=== PATIENT | female | born 1945 | race Caucasian/White ===

== ENCOUNTER 2016-10-17 13:32 | Observation (INO) | payer MEDICARE, BC ==
[2016-10-17] MEDS ORDERED: SODIUM CHLORIDE FLUSH 0.9% 10 ML SYRINGE IVP PRN ×3 (16:55→19:52)
[2016-10-17] MEDS ORDERED: ACETAMINOPHEN 325 MG TABLET PO ONE ×2 (19:00→19:56)
[2016-10-17] MEDS ORDERED: diphenhydrAMINE 25 MG CAPSULE PO ONE ×2 (19:00→19:58)
[2016-10-17] MEDS ORDERED: diphenhydrAMINE 25 MG CAPSULE PO SCH (19:52)
[2016-10-17] MEDS ORDERED: ACETAMINOPHEN 325 MG TABLET PO SCH (19:52)
[2016-10-17] MEDS ORDERED: LORazepam 0.5 MG TABLET PO PRN (19:59)
[2016-10-17] MEDS ORDERED: ACETAMINOPHEN 325 MG TABLET PO PRN (19:59)
[2016-10-17] MEDS ORDERED: DOCUSATE SODIUM 100 MG CAPSULE PO PRN (19:59)
[2016-10-17] MEDS ORDERED: ALBUTEROL 8 GM INHALER INH PRN (19:59)
[2016-10-17] MEDS ORDERED: IPRATROPIUM/ALBUTEROL 3 ML NEB INH PRN (19:59)
[2016-10-17] MEDS ORDERED: diphenhydrAMINE 25 MG CAPSULE PO PRN (19:59)
[2016-10-17] MEDS ORDERED: ONDANSETRON ODT 4 MG TABLET PO PRN (19:59)
[2016-10-17] MEDS ORDERED: MIRTAZAPINE 15 MG TABLET PO SCH (21:00)
[2016-10-17] MEDS ORDERED: PRAVASTATIN 10 MG TABLET PO SCH (21:00)
[2016-10-17] MEDS ORDERED: SODIUM CHLORIDE FLUSH 0.9% 10 ML SYRINGE IVP SCH ×2 (22:00)
[2016-10-17] MEDS: oxyCODONE 5 MG TABLET PO PRN (22:34)
[2016-10-17] MEDS: SODIUM CHLORIDE FLUSH 0.9% 10 ML SYRINGE IVP SCH (23:12)
[2016-10-17] MEDS: GABAPENTIN 300 MG CAPSULE PO SCH (23:12)
[2016-10-17] MEDS: PANTOPRAZOLE 40 MG TABLET PO SCH (23:12)
[2016-10-18] MEDS: oxyCODONE 5 MG TABLET PO PRN ×2 (02:19→06:07)
[2016-10-18] MEDS: GABAPENTIN 300 MG CAPSULE PO SCH (06:06)
[2016-10-18] MEDS: SODIUM CHLORIDE FLUSH 0.9% 10 ML SYRINGE IVP SCH (06:07)
[2016-10-18] MEDS ORDERED: LEVOTHYROXINE 125 MCG TABLET PO SCH (07:00)
[2016-10-18] MEDS ORDERED: ALBUTEROL NEB 2.5 MG/3 ML INH PRN ×2 (07:29→07:38)
[2016-10-18] MEDS ORDERED: SEVELAMER 800 MG TABLET PO SCH (08:00)
[2016-10-18] MEDS ORDERED: FERROUS SULFATE 325 MG TABLET PO SCH (08:00)
[2016-10-18] MEDS: PANTOPRAZOLE 40 MG TABLET PO SCH (08:24)
[2016-10-18] MEDS ORDERED: LIDOCAINE PATCH 5% TOP SCH (09:00)
[2016-10-18] MEDS ORDERED: CARVEDILOL 3.125 MG TABLET PO SCH (09:00)
[2016-10-18] MEDS ORDERED: CHOLECALCIFEROL 1,000 UNIT TABLET PO SCH (09:00)
[2016-10-18] MEDS ORDERED: FOLIC ACID 1 MG TABLET PO SCH (09:00)
[2016-10-18] MEDS ORDERED: POLYETHYLENE GLYCOL 3350 17 GM PACKET PO SCH ×3 (09:00)
[2016-10-18] MEDS ORDERED: ASPIRIN EC 81 MG TABLET PO SCH (09:00)
== END 2016-10-18 10:40 | disposition home or self-care (01) ==
DX: D63.1 Anemia in chronic kidney disease (principal); E11.22 Type 2 diabetes mellitus with diabetic chronic kidney disease; I13.11 Hypertensive heart and chronic kidney disease without heart failure, with stage 5 chronic kidney disease, or end stage renal disease; N18.6 End stage renal disease; Z99.2 Dependence on renal dialysis; Q61.3 Polycystic kidney, unspecified; I48.91 Unspecified atrial fibrillation; E03.9 Hypothyroidism, unspecified; N25.81 Secondary hyperparathyroidism of renal origin; F32.9 Major depressive disorder, single episode, unspecified; M81.0 Age-related osteoporosis without current pathological fracture; C50.912 Malignant neoplasm of unspecified site of left female breast; Z17.0 Estrogen receptor positive status [ER+]; G89.29 Other chronic pain; M54.9 Dorsalgia, unspecified; M25.512 Pain in left shoulder; M25.511 Pain in right shoulder; M54.2 Cervicalgia; K21.9 Gastro-esophageal reflux disease without esophagitis; K44.9 Diaphragmatic hernia without obstruction or gangrene; Z96.649 Presence of unspecified artificial hip joint; Z96.659 Presence of unspecified artificial knee joint; Z79.891 Long term (current) use of opiate analgesic; Z79.51 Long term (current) use of inhaled steroids; Z79.82 Long term (current) use of aspirin; Z79.899 Other long term (current) drug therapy
CPT/HCPCS: 36415; 36430; 80053; 83690; 83735; 84100; 85025; 86850; 86900; 86901; 86920; 94640; 99283; 99285; A9270; G0378; J7620; P9016

== ENCOUNTER 2016-12-11 12:59 | Outpatient (CLI) | payer MEDICARE, BC | END 2016-12-11 13:00 | disposition home or self-care (01) | DX: Z08 Encounter for follow-up examination after completed treatment for malignant neoplasm (principal); Z85.3 Personal history of malignant neoplasm of breast ==

== ENCOUNTER 2016-12-12 16:18 | Outpatient (CLI) | payer MEDICARE, BC ==
[2016-12-12] MEDS ORDERED: IOTHALAMATE MEGLUMINE 50 ML VIAL IVP ONE (17:21)
== END 2016-12-12 16:19 | disposition home or self-care (01) ==
DX: Z45.2 Encounter for adjustment and management of vascular access device (principal)
CPT/HCPCS: 76000; Q9961

== ENCOUNTER 2017-02-14 15:44 | Outpatient (CLI) | payer MEDICARE, BC | END 2017-02-14 15:45 | disposition home or self-care (01) | DX: J84.9 Interstitial pulmonary disease, unspecified (principal); I51.7 Cardiomegaly ==

== ENCOUNTER 2017-02-16 17:05 | Emergency (ER) | payer MEDICARE, BC ==
[2017-02-16] MEDS ORDERED: IPRATROPIUM/ALBUTEROL 3 ML NEB INH STA (17:22)
[2017-02-16] MEDS ORDERED: IPRATROPIUM/ALBUTEROL 3 ML NEB INH ONE (17:24)
[2017-02-16] MEDS ORDERED: ALBUTEROL NEB 2.5 MG/3 ML INH STA ×2 (18:05→18:58)
[2017-02-16] MEDS ORDERED: ALBUTEROL NEB 2.5 MG/3 ML INH ONE ×2 (18:14→19:26)
[2017-02-16] MEDS ORDERED: methylPREDNISolone SUCCINATE 125 MG/2 ML VIAL IVP STA (18:58)
[2017-02-16] MEDS ORDERED: methylPREDNISolone SUCCINATE 125 MG/2 ML VIAL IVP ONE (19:17)
== END 2017-02-16 21:04 | disposition short-term general hospital (02) ==
DX: J44.1 Chronic obstructive pulmonary disease with (acute) exacerbation (principal); Z99.81 Dependence on supplemental oxygen; I13.2 Hypertensive heart and chronic kidney disease with heart failure and with stage 5 chronic kidney disease, or end stage renal disease; N18.6 End stage renal disease; I50.9 Heart failure, unspecified; D63.1 Anemia in chronic kidney disease; Z99.2 Dependence on renal dialysis; I48.91 Unspecified atrial fibrillation; G47.30 Sleep apnea, unspecified; K21.9 Gastro-esophageal reflux disease without esophagitis; M19.90 Unspecified osteoarthritis, unspecified site; Z85.3 Personal history of malignant neoplasm of breast; Z85.828 Personal history of other malignant neoplasm of skin; Z79.82 Long term (current) use of aspirin
CPT/HCPCS: 36415; 71020; 80053; 83605; 83690; 84484; 85025; 87040; 93005; 93010; 94640; 96365; 96375; 99284; 99285; J7613; J7620

== ENCOUNTER 2017-02-16 21:00 | Outpatient (CLI) | payer MEDICARE, BC | END 2017-02-16 21:01 | disposition short-term general hospital (02) | LOC: EMS 21:00 | PROVIDERS: ATTEND Surgery | DX: R06.02 Shortness of breath (principal); R05 Cough | CPT/HCPCS: A0170; A0425; A0426 ==

== ENCOUNTER 2017-03-07 23:35 | Emergency (ER) | payer MEDICARE, BC ==
--- NOTE | 2017-03-07 23:49 | ED Physician Documentation ---
PD HPI UPPER EXT INJURY - Stated complaint Stated Complaint: RT ARM INJURY - Chief complaint Chief Complaint: Ext Problem - History obtained from History obtained from: Patient - History of Present Illness Location: Right, Wrist, Hand Type of injury: Fall Where injury occurred: Home Timing - onset: Enter time (20:00) Timing - details: Abrupt onset Pain level now: 8 Improved by: Rest Worsened by: Moving, Palpating Associated symptoms: Swelling. No: Weakness, Numbness Similar symptoms before: Has not had sx before Recently seen: Not recently seen - Additonal information Additional information: lost balance and fell at home at 8 PM tonight, c/o right wrist and right hand pain, worse with movement and palpation Review of Systems Musculoskeletal: reports: Extremity pain, Joint pain, Extremity swelling, Joint swelling. 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: Breast cancer : Dialysis HEENT: None Psych: Depression, Claustrophobia Musculoskeletal: Osteoarthritis, Osteoporosis, Fatigue, Chronic back pain Derm: Other - Past Surgical History Past Surgical History: Yes General: Cholecystectomy, Bowel surgery, Other Ortho: Knee replacement /POT BUILDER: 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 HEENT: Cataracts, Tonsil/Adenoidectomy, Other Derm: Skin cancer surgery - Present Medications Home Medications: Ambulatory Orders Medication Instructions Recorded Confirmed Aspirin [Aspir 81] 81 mg PO DAILY 04/05/14 12/13/16 Gabapentin 300 mg PO TID 04/05/14 12/13/16 Levothyroxine Sodium [Synthroid] 125 mcg PO DAILY 04/05/14 12/13/16 Lorazepam [Ativan] 1 mg PO Q8H PRN 04/05/14 12/13/16 Omeprazole 20 mg PO BID 04/05/14 12/13/16 Folic Acid 800 mcg PO DAILY 06/24/14 12/13/16 Mecobal/Levomefolat Ca/B6 Phos 1 tab PO BID 06/24/14 12/13/16 [Foltanx Tablet] Sevelamer Carbonate [Renvela] 1,600 mg PO TIDWM 06/24/14 12/13/16 Albuterol Sulfate [Proair 2 puffs INH Q6HR PRN 08/09/16 12/13/16 Respiclick] Carvedilol 3.125 mg PO DAILY 08/09/16 12/13/16 Cholecalciferol (Vitamin D3) 2,000 units PO DAILY 08/09/16 12/13/16 [Vitamin D3] Diphenhydramine HCl [Sleep Aid] 25 mg PO QPM PRN 08/09/16 12/13/16 Docusate Sodium 100 mg PO DAILY PRN 08/09/16 12/13/16 Mirtazapine 15 mg PO QPM 08/09/16 12/13/16 Ondansetron [Ondansetron Odt] 4 mg PO Q8H PRN 08/09/16 12/13/16 oxyCODONE [Roxicodone] 5 mg PO Q4H PRN 08/09/16 12/13/16 Acetaminophen 650 mg PO Q4H PRN 10/17/16 12/13/16 Ferrous Sulfate 325 mg PO TIDWM 10/17/16 12/13/16 Ipratropium/Albuterol [Duoneb] 3 ml INH Q6H PRN 10/17/16 12/13/16 Lidocaine Patch 5% [Lidoderm Patch] 1 patch TOP DAILY 10/17/16 12/13/16 Pravastatin [Pravachol] 10 mg PO QPM 10/17/16 12/13/16 Polyethylene Glycol 3350 [Miralax] 17 gm PO DAILY packet 10/18/16 12/13/16 Prednisone 0 mg PO DAILY 02/16/17 02/16/17 levoFLOXacin [Levaquin] 0 mg PO DAILY 02/16/17 02/16/17 - Allergies Allergies/Adverse Reactions: Allergies Allergy/AdvReac Type Severity Reaction Status Date / Time atenolol Allergy Severe "Bradycardi Verified 11/08/16 08:54 a" doxazosin mesylate * Allergy Severe "Severe Verified 11/08/16 08:54 [From Cardura] eye pressure" ibuprofen [From Motrin] Allergy Severe "Kidney Verified 11/08/16 08:54 failure" metoprolol tartrate * Allergy Severe "Bradycardi Verified 11/08/16 08:54 [From Lopressor] a" nifedipine [From Procardia] Allergy Severe Edema Verified 11/08/16 08:54 heparin AdvReac Intermediate "Makes Verified 11/08/16 08:54 Skin Burn" hydrochlorothiazide AdvReac Intermediate "feels Verified 11/08/16 08:54 like an air-head" hydrocodone bitartrate * AdvReac Intermediate "Head in a Verified 11/08/16 08:54 [From Vicodin] wind tunnel" spironolactone AdvReac Intermediate "Cough" Verified 11/08/16 08:54 - Social History Does the pt smoke?: No Smoking Status: Never smoker Does the pt drink ETOH?: No Does the pt have substance abuse?: No - Immunizations Immunizations are current?: Yes - POLST Patient has POLST: No PD ED PE NORMAL - Vitals Vital signs reviewed: Yes - General General: Alert and oriented X 3, Well developed/nourished, Other (appears to be in painful distress) - Derm Derm: Normal color, Warm and dry - Neuro Neuro: No motor deficit, No sensory deficit PD ED PE EXPANDED - Extremities Extremities: Tenderness, Limited ROM, Swelling, Right wrist, Right hand, Other ( RUE AV fistula has thrill/bruit and no evidence of injury) Results - Vitals Vitals: Vital Signs - 24 hr 03/07/17 03/08/17 03/08/17 23:41 01:08 02:20 Temperature 36.6 C Heart Rate 65 72 74 Respiratory 20 18 18 Rate Blood Pressure 140/63 H 135/68 H 138/68 H O2 Saturation 91 L 90 L 94 03/08/17 02:52 Temperature Heart Rate 68 Respiratory 18 Rate Blood Pressure O2 Saturation 93 Oxygen O2 Source Room air - Rads (name of study) right hand xrays Radiology: Prelim report reviewed, See rad report right wrist xrays Radiology: Prelim report reviewed, See rad report PD MEDICAL DECISION MAKING - ED course Complexity details: reviewed results, re-evaluated patient, considered differential, d/w patient, d/w family Departure - Departure Disposition: 01 Home, Self Care Clinical Impression: Wrist sprain Condition: Good Instructions: ED Sprain Wrist Follow-Up: Jorge Jones DO [Primary Care Provider] - Malcom Villarreal MD [Provider Admit Priv/Credential] - Comments: There is no evidence of a fracture or dislocation on tonight's xrays. However, the amount of pain you are having is unusual for a simple sprain or bruise. You should follow-up with your primary care physician or orthopedic surgery, next available appointment, for a reevaluation of the injury and possibly repeat xrays. Discharge Date/Time: 03/08/17 02:52
[2017-03-08] MEDS ORDERED: HYDROmorphone 1 MG/ML SYRINGE ONE ×3 (00:03→02:36)
[2017-03-08] MEDS: HYDROmorphone 1 MG/ML SYRINGE IM STA ×3 (00:06→02:39)
--- NOTE | 2017-03-08 01:21 | XRAY Preliminary Report ---
Exam: XR Wrist 3 View RT IMPRESSION: 1. Old radial metaphyseal fracture deformity. 2. No evidence of acute fracture. 3. Degenerative changes. [facility] SITE ID: [id number]
--- NOTE | 2017-03-08 01:23 | XRAY Preliminary Report ---
Exam: XR Hand 3 View RT IMPRESSION: No acute fracture or dislocations. Osteoarthritis. [facility] SITE ID: [id number]
--- NOTE | 2017-03-08 01:23 | XRAY Report ---
EXAM: RIGHT WRIST RADIOGRAPHY EXAM DATE: 03/08/2017 12:54 AM. CLINICAL HISTORY: Fall, pain, deformity. COMPARISON: 07/05/2016. TECHNIQUE: 3 views. FINDINGS: Bones: There is an old radial metaphyseal fracture deformity. No acute fracture seen. Generalized ost eopenia. Joints: Advanced degenerative changes at the first carpometacarpal joint. No dislocations. Soft Tissues: Calcified radial and ulnar arteries indicating diabetic vasculopathy. IMPRESSION: 1. Old radial metaphyseal fracture deformity. 2. No evidence of acute fracture. 3. Degenerative changes. [facility] Referring Provider Line: [phone] SITE ID: [id number]
--- NOTE | 2017-03-08 01:26 | XRAY Report ---
EXAM: RIGHT HAND RADIOGRAPHY EXAM DATE: 03/08/2017 12:54 AM. CLINICAL HISTORY: Fall, pain, deformity. COMPARISON: None. TECHNIQUE: 3 views. FINDINGS: Bones: Osteopenia. No acute fractures. Joints: Advanced osteoarthritic changes involving the PIP, DIP and first carpometacarpal joints. Soft Tissues: Normal. No soft tissue swelling. IMPRESSION: No acute fracture or dislocations. Osteoarthritis. [facility] Referring Provider Line: [phone] SITE ID: [id number]
[2017-03-08 02:20] VITALS: BP 138/68
== END 2017-03-08 02:52 | disposition home or self-care (01) ==
LOC: ED 23:35
DX: S63.501A Unspecified sprain of right wrist, initial encounter (principal); W01.0XXA Fall on same level from slipping, tripping and stumbling without subsequent striking against object, initial encounter; Y92.019 Unspecified place in single-family (private) house as the place of occurrence of the external cause; I11.0 Hypertensive heart disease with heart failure; I50.9 Heart failure, unspecified; I48.91 Unspecified atrial fibrillation; G47.30 Sleep apnea, unspecified; K21.9 Gastro-esophageal reflux disease without esophagitis; Z85.3 Personal history of malignant neoplasm of breast; M19.90 Unspecified osteoarthritis, unspecified site; Z79.82 Long term (current) use of aspirin; Z99.2 Dependence on renal dialysis
CPT/HCPCS: 96372; 99282; 99284

== ENCOUNTER 2017-03-19 12:58 | Day surgery (SDC) | payer MEDICARE, BC ==
[2017-03-19] MEDS ORDERED: LACTATED RINGERS 1,000 ML IV ONE (13:15)
[2017-03-19] MEDS ORDERED: SODIUM CHLORIDE 0.9% 1,000 ML IV ONE (13:58)
[2017-03-19] MEDS ORDERED: LIDOCAINE-MPF 2% 5 ML VIAL IM ONE (15:00)
[2017-03-19] MEDS ORDERED: MIDAZOLAM 2 MG/2 ML VIAL IVP ONE (15:00)
[2017-03-19] MEDS ORDERED: PROPOFOL 200 MG/20 ML VIAL IVP ONE (15:00)
[2017-03-19 15:43] VITALS: BP 135/72
== END 2017-03-19 12:59 | disposition home or self-care (01) ==
LOC: SDS 12:58
PROVIDERS: ATTEND Internal Medicine
PROC: 0DBN8ZX Excision of Sigmoid Colon, Via Natural or Artificial Opening Endoscopic, Diagnostic (ICD-10-PCS; principal; 2017-03-19 14:00)
PROC: 0DBL8ZX Excision of Transverse Colon, Via Natural or Artificial Opening Endoscopic, Diagnostic (ICD-10-PCS; 2017-03-19 14:00)
DX: K92.1 Melena (principal); D64.9 Anemia, unspecified; K21.9 Gastro-esophageal reflux disease without esophagitis; D12.5 Benign neoplasm of sigmoid colon; D12.3 Benign neoplasm of transverse colon; K44.9 Diaphragmatic hernia without obstruction or gangrene; K64.2 Third degree hemorrhoids; Z90.710 Acquired absence of both cervix and uterus; Z94.0 Kidney transplant status; Z90.49 Acquired absence of other specified parts of digestive tract; I11.0 Hypertensive heart disease with heart failure; I50.9 Heart failure, unspecified; I48.91 Unspecified atrial fibrillation
CPT/HCPCS: 45380; 88305

== ENCOUNTER 2017-09-08 06:56 | Outpatient (CLI) | payer MEDICARE, BC | END 2017-09-08 06:57 | disposition critical access hospital (66) | LOC: EMS 06:56 | PROVIDERS: ATTEND Surgery | DX: M25.561 Pain in right knee (principal); W18.2XXA Fall in (into) shower or empty bathtub, initial encounter; Y92.002 Bathroom of unspecified non-institutional (private) residence as the place of occurrence of the external cause | CPT/HCPCS: A0425; A0429 ==

== ENCOUNTER 2017-09-08 07:31 | Emergency (ER) | payer MEDICARE, BC ==
--- NOTE | 2017-09-08 07:45 | ED Physician Documentation ---
PD HPI Fall - Stated complaint Stated Complaint: FALL - Chief complaint Chief Complaint: Ext Problem - History obtained from History obtained from: Patient, EMS - History of Present Illness Mechanism of injury: Tripped Fall distance: Standing position Where injury occurred: Home Timing - onset: Today Injury(ies) location: Head, Neck, Right Lower Extremity Quality of pain: Pain Associated symptoms: Neck pain. No: LOC, AMS, Amnesia, Seizures, Ear drainage, Nasal drainage, Weakness, Paresthesias, Dyspnea, Nausea / vomiting, Hematemesis , Abdominal distension Symptoms improve with: Rest Worsens with: Movement, Palpation Contributing factors: No: Anticoagulated Similar symptoms before: Has not had sx before Recently seen: Other - Additional information Additional information: 71-year-old female with end-stage renal disease on dialysis was getting into the shower this morning when she tripped over a towel and landed in the shower. She did strike the back of her head or neck she did not have loss of consciousness she did have an injury to the right knee. She is uncertain the exact mechanism of this but has a lot of pain and swelling in the knee. She called the ambulance and brought to the hospital. Review of Systems Constitutional: denies: Fever, Chills, Myalgias, Fatigue Eyes: denies: Decreased vision Ears: denies: Ear pain Nose: reports: Congestion. denies: Rhinorrhea / runny nose Throat: denies: Sore throat Cardiac: denies: Chest pain / pressure, Palpitations Respiratory: denies: Dyspnea, Cough GI: denies: Abdominal Pain, Nausea, Vomiting : denies: Dysuria, Frequency Skin: denies: Rash Musculoskeletal: reports: Neck pain, Extremity pain, Joint pain, Joint swelling. 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, Other HEENT: Chronic vision loss Psych: Anxiety Musculoskeletal: Osteoarthritis, Chronic back pain Derm: Other - Past Surgical History Past Surgical History: Yes General: Cholecystectomy, Bowel surgery Ortho: Knee replacement /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 HEENT: Cataracts, Tonsil/Adenoidectomy Derm: Skin cancer surgery - Present Medications Home Medications: Ambulatory Orders Medication Instructions Recorded Confirmed Aspirin [Aspir 81] 81 mg PO DAILY 04/05/14 07/15/17 Gabapentin 300 mg PO TID 04/05/14 07/15/17 Levothyroxine Sodium [Synthroid] 125 mcg PO DAILY 04/05/14 07/15/17 Lorazepam [Ativan] 1 mg PO Q8H PRN 04/05/14 07/15/17 Omeprazole 20 mg PO BID 04/05/14 07/15/17 Folic Acid 800 mcg PO DAILY 06/24/14 07/15/17 Mecobal/Levomefolat Ca/B6 Phos 1 tab PO BID 06/24/14 07/15/17 [Foltanx Tablet] Sevelamer Carbonate [Renvela] 1,600 mg PO TIDWM 06/24/14 07/15/17 Albuterol Sulfate [Proair 2 puffs INH Q6HR PRN 08/09/16 07/15/17 Respiclick] Cholecalciferol (Vitamin D3) 2,000 units PO DAILY 08/09/16 07/15/17 [Vitamin D3] Diphenhydramine HCl [Sleep Aid] 25 mg PO QPM PRN 08/09/16 07/15/17 Docusate Sodium 100 mg PO DAILY PRN 08/09/16 07/15/17 Mirtazapine 15 mg PO QPM 08/09/16 07/15/17 Ondansetron [Ondansetron Odt] 4 mg PO Q8H PRN 08/09/16 07/15/17 oxyCODONE [Roxicodone] 5 mg PO Q4H PRN 08/09/16 07/15/17 Acetaminophen 650 mg PO Q4H PRN 10/17/16 07/15/17 Ferrous Sulfate 325 mg PO TIDWM 10/17/16 07/15/17 Ipratropium/Albuterol [Duoneb] 3 ml INH Q6H PRN 10/17/16 07/15/17 Lidocaine Patch 5% [Lidoderm Patch] 1 patch TOP DAILY 10/17/16 07/15/17 Pravastatin [Pravachol] 10 mg PO QPM 10/17/16 07/15/17 Polyethylene Glycol 3350 [Miralax] 17 gm PO DAILY packet 10/18/16 07/15/17 - Allergies Allergies/Adverse Reactions: Allergies Allergy/AdvReac Type Severity Reaction Status Date / Time atenolol Allergy Severe "Bradycardi Verified 04/24/17 15:50 a" doxazosin mesylate * Allergy Severe "Severe Verified 04/24/17 15:50 [From Cardura] eye pressure" ibuprofen [From Motrin] Allergy Severe "Kidney Verified 04/24/17 15:50 failure" metoprolol tartrate * Allergy Severe "Bradycardi Verified 04/24/17 15:50 [From Lopressor] a" nifedipine [From Procardia] Allergy Severe Edema Verified 04/24/17 15:50 heparin AdvReac Intermediate "Makes Verified 04/24/17 15:50 Skin Burn" hydrochlorothiazide AdvReac Intermediate "feels Verified 04/24/17 15:50 like an air-head" hydrocodone bitartrate * AdvReac Intermediate "Head in a Verified 04/24/17 15:50 [From Vicodin] wind tunnel" spironolactone AdvReac Intermediate "Cough" Verified 04/24/17 15:50 - Social History Does the pt smoke?: No Smoking Status: Never smoker Does the pt drink ETOH?: No Does the pt have substance abuse?: No - Immunizations Immunizations are current?: Yes - POLST Patient has POLST: No PD ED PE NORMAL - Vitals Vital signs reviewed: Yes (hypertensive) - General General: Alert and oriented X 3, No acute distress, Well developed/nourished, Other (large proptotic tongue and dry mucous membranes) - HEENT HEENT: PERRL, EOMI, Other (There is a short neck and some midline tenderness to the cervical spine. There is tenderness to the occiput on the left. ) - Neck Neck: Supple, no meningeal sign, Other (midline mid cervical tenderness) - Cardiac Cardiac: RRR, No murmur - Respiratory Respiratory: No respiratory distress, Clear bilaterally - Abdomen Abdomen: Soft, Non tender - Back Back: No CVA TTP, No spinal TTP - Derm Derm: Normal color, Warm and dry, No rash - Extremities Extremities: Other (There is post inflamitory hyperpigmentation of the LE bilat. There is an effusion to the right knee joint and pain with ROM testing. The medial collateral ligment opens on testing. distal n/v is intact. ) - Neuro Neuro: Alert and oriented X 3, No motor deficit, No sensory deficit, Normal speech Eye Opening: Spontaneous Motor: Obeys Commands Verbal: Oriented GCS Score: 15 - Psych Psych: Normal mood, Normal affect Results - Vitals Vitals: Vital Signs - 24 hr 09/08/17 09/08/17 09/08/17 07:34 08:20 08:46 Temperature 36.4 C L 36.8 C Heart Rate 65 66 Respiratory 18 18 Rate Blood Pressure 139/81 H 129/74 O2 Saturation 100 98 09/08/17 09/08/17 09/08/17 09:47 10:16 11:09 Temperature Heart Rate 70 64 70 Respiratory 18 20 20 Rate Blood Pressure 114/73 105/52 L 100/77 O2 Saturation 99 96 99 09/08/17 13:53 Temperature 37.3 C Heart Rate 92 Respiratory 20 Rate Blood Pressure 108/56 L O2 Saturation 97 Oxygen O2 Source Nasal cannula PD MEDICAL DECISION MAKING - ED course Complexity details: considered differential, d/w patient ED course: 71-year-old female with end-stage renal disease on dialysis has fallen in her shower today and has a tibial plateau fracture in the right knee. She will need immobilization and nonweightbearing. She does have some help at home but not adequate. She will need more help at home. The your orthopedist is consulted in the case and recommends conservative therapy for this patient and follow-up in clinic. Social work is consulted in the case. The patient herself has some issues with narcotic use and will repeatedly asked for further doses of narcotic pain medication. She has in the past been given a dose of 2 mg of Dilaudid intravenously for pain not relieved with 1 mg and this resulted in respiratory arrest and the diagnostic imaging department. The patient was resuscitated from that and her narcotic use has been curtailed. She is currently under pain management by Dr. Jones and Dr. Jones he is consulted in the case and he will be managing her pain medication. Departure - Departure Disposition: 01 Home, Self Care Clinical Impression: Tibial plateau fracture, left Qualifiers: Encounter type: initial encounter Fracture type: closed Qualified Code(s): S82.142A - Displaced bicondylar fracture of left tibia, initial encounter for closed fracture Condition: Stable Instructions: ED Fx Knee Follow-Up: [facility] [Provider Group] Jorge Jones, [Provider Admit Priv/Credential] - Comments: Wear the knee immobilizer continuously and when you are up to ambulate do not bear weight on your right leg. Discharge Date/Time: 09/08/17 14:00
--- NOTE | 2017-09-08 08:14 | CT Preliminary Report ---
Exam: CT HEAD W/O IMPRESSION: 1. Generalized age-related cortical atrophic changes without evidence of acute intracranial abnormali ty. 2. Paranasal sinusitis is evident. [facility] SITE ID: [id number]
--- NOTE | 2017-09-08 08:17 | CT Report ---
EXAM: CT HEAD EXAM DATE: 09/08/2017 08:01 AM. CLINICAL HISTORY: Fall occipital contusion. COMPARISON: 04/05/2014. TECHNIQUE: Multiaxial CT images were obtained from the foramen magnum to the vertex. IV contrast: Non e. Reformats: Coronal. In accordance with CT protocol optimization, one or more of the following dose reduction techniques w ere utilized for this exam: automated exposure control, adjustment of mA and/or KV based on patient s ize, or use of iterative reconstructive technique. FINDINGS: Parenchyma: No intraparenchymal hemorrhage. No evidence of mass, midline shift, or CT findings of acu te infarction. Solis-white differentiation is distinct. Diffuse chronic microangiopathic white matter changes are evident. Extraaxial Spaces: Normal for age. No subdural or epidural collections identified. Ventricles: The ventricles and cortical sulci are enlarged, consistent with age-related tissue loss. Sinuses and orbits: Mucosal thickening seen in the bilateral maxillary sinuses. Mastoid air cells almaz ear clear. Orbits appear unremarkable. Bones: No evidence of fracture or calvarial defect. Other: None. IMPRESSION: 1. Generalized age-related cortical atrophic changes without evidence of acute intracranial abnormali ty. 2. Paranasal sinusitis is evident. [facility] Referring Provider Line: [phone] SITE ID: [id number]
--- NOTE | 2017-09-08 08:22 | XRAY Preliminary Report ---
Exam: XR KNEE 4 VIEW RT IMPRESSION: 1. Minimally displaced medial tibial plateau fracture. 2. Substantial, diffuse osteopenia. 3. Moderate-sized joint effusion/lipohemarthrosis. 4. Old, healed proximal fibular fracture. [facility] SITE ID: [id number]
--- NOTE | 2017-09-08 08:25 | XRAY Report ---
EXAM: RIGHT KNEE RADIOGRAPHY EXAM DATE: 09/08/2017 07:50 AM. CLINICAL HISTORY: Fall effusion reduced ROM. Right knee pain after fall. COMPARISON: 06/16/2016. TECHNIQUE: 4 views. FINDINGS: Bones: Substantial, diffuse osteopenia. New, minimally displaced fracture of the medial tibial platea u, extending to near the midline of the tibia. No other definite acute fractures. Old, healed proxima l fibular fracture redemonstrated. Joints: No subluxation. Joint spaces are preserved. Minimal medial and lateral meniscal chondrocalcin osis demonstrated. Moderate sized joint effusion, probably representing a lipohemarthrosis. Soft Tissues: Extensive vascular calcifications redemonstrated. No soft tissue swelling. IMPRESSION: 1. Minimally displaced medial tibial plateau fracture. 2. Substantial, diffuse osteopenia. 3. Moderate-sized joint effusion/lipohemarthrosis. 4. Old, healed proximal fibular fracture. [facility] Referring Provider Line: [phone] SITE ID: [id number]
[2017-09-08] MEDS ORDERED: HYDROmorphone 1 MG/ML SYRINGE IVP STA ×2 (08:48→10:05)
[2017-09-08] MEDS ORDERED: ONDANSETRON 4 MG/2 ML VIAL IVP STA (08:48)
--- NOTE | 2017-09-08 08:50 | CT Preliminary Report ---
Exam: CT CERVICAL SPINE W/O IMPRESSION: Multilevel degenerative change cervical spine with anterior listhesis C4 on C5 and C5 on C6 with multilevel degenerative facet joint arthropathy similar to 04/05/2014. No definite superimpos ed acute findings [facility] SITE ID: [id number]
--- NOTE | 2017-09-08 08:53 | CT Report ---
EXAM: CT CERVICAL SPINE WITHOUT CONTRAST DATE: 09/08/2017 08:01 AM. HISTORY: Fall occipital contusion. Neck pain COMPARISONS: 04/05/2014. TECHNIQUE: Thin-section axial images were acquired of the cervical spine without contrast. Post-proce ssing: Coronal and sagittal reformats. Other: None. In accordance with CT protocol optimization, one or more of the following dose reduction techniques w ere utilized for this exam: automated exposure control, adjustment of mA and/or KV based on patient s ize, or use of iterative reconstructive technique. FINDINGS: Alignment: Approximately 3 mm of anterior listhesis C4 on C5 and 4 mm of anterior listhesis of C5 on C6 similar to preceding. Bones: No fracture or bone lesion. Interspace Levels/Facets: C1-C2 through C7-T1: Advanced degenerative disk space narrowing C5-C6 and C6-C7 with progressive dege nerative erosion of the inferior endplate of C6 since the prior study. Remaining disk spaces grossly well maintained. Multilevel degenerative facet joint arthropathy with mild progressive widening of th e left C2-C3 facet compared to the prior study. Previously seen asymmetric widening of the left C3-C4 facet joint has decreased. Musculature: Normal. No fatty atrophy. Other: Vascular graft right neck and Port-A-Cath left subclavian. Tracheotomy. IMPRESSION: Multilevel degenerative change cervical spine with anterior listhesis C4 on C5 and C5 on C6 with multilevel degenerative facet joint arthropathy similar to 04/05/2014. No definite superimpos ed acute findings [facility] Referring Provider Line: [phone] SITE ID: [id number]
[2017-09-08] MEDS ORDERED: HYDROmorphone 1 MG/ML SYRINGE ONE ×2 (09:09→10:17)
[2017-09-08] MEDS ORDERED: ONDANSETRON 4 MG/2 ML VIAL ONE (09:09)
--- NOTE | 2017-09-08 09:21 | CONSULTATION NOTE ---
Referring Provider Name of Referring Provider:: alberto cardona Consult Date: 09/08/17 Chief Complaint - Chief Complaint Chief Complaint: right knee pain History of Present Illness - Admitted From Admitted From:: home - History Obtained From History obtained from: patient Exam Limitations: pain - History of Present Illness HPI Comment/Other: 73 y.o female with CRF on dialysis post failed transplant who slipped on rug at edge of bath falling with primarily right knee pain. Prior left TKA. No prior injury to right inee. At home patient uses walker and WC. 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: reports: Breast cancer : reports: Dialysis, Other HEENT: reports: Chronic vision loss Psych: reports: Anxiety Musculoskeletal: reports: Osteoarthritis, Chronic back pain Derm: reports: Other MRSA Hx?: No - Past Surgical History General: reports: Cholecystectomy, Bowel surgery Ortho: reports: Knee replacement /ANTHROPOLOGY PROFESSOR: reports: 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 HEENT: reports: Cataracts, Tonsil/Adenoidectomy Derm: reports: Skin cancer surgery - POLST Patient has POLST: No Meds/Allgy - Home Medications Home Medications: Ambulatory Orders Medication Instructions Recorded Confirmed Aspirin [Aspir 81] 81 mg PO DAILY 04/05/14 07/15/17 Gabapentin 300 mg PO TID 04/05/14 07/15/17 Levothyroxine Sodium [Synthroid] 125 mcg PO DAILY 04/05/14 07/15/17 Lorazepam [Ativan] 1 mg PO Q8H PRN 04/05/14 07/15/17 Omeprazole 20 mg PO BID 04/05/14 07/15/17 Folic Acid 800 mcg PO DAILY 06/24/14 07/15/17 Mecobal/Levomefolat Ca/B6 Phos 1 tab PO BID 06/24/14 07/15/17 [Foltanx Tablet] Sevelamer Carbonate [Renvela] 1,600 mg PO TIDWM 06/24/14 07/15/17 Albuterol Sulfate [Proair 2 puffs INH Q6HR PRN 08/09/16 07/15/17 Respiclick] Cholecalciferol (Vitamin D3) 2,000 units PO DAILY 08/09/16 07/15/17 [Vitamin D3] Diphenhydramine HCl [Sleep Aid] 25 mg PO QPM PRN 08/09/16 07/15/17 Docusate Sodium 100 mg PO DAILY PRN 08/09/16 07/15/17 Mirtazapine 15 mg PO QPM 08/09/16 07/15/17 Ondansetron [Ondansetron Odt] 4 mg PO Q8H PRN 08/09/16 07/15/17 oxyCODONE [Roxicodone] 5 mg PO Q4H PRN 08/09/16 07/15/17 Acetaminophen 650 mg PO Q4H PRN 10/17/16 07/15/17 Ferrous Sulfate 325 mg PO TIDWM 10/17/16 07/15/17 Ipratropium/Albuterol [Duoneb] 3 ml INH Q6H PRN 10/17/16 07/15/17 Lidocaine Patch 5% [Lidoderm Patch] 1 patch TOP DAILY 10/17/16 07/15/17 Pravastatin [Pravachol] 10 mg PO QPM 10/17/16 07/15/17 Polyethylene Glycol 3350 [Miralax] 17 gm PO DAILY packet 10/18/16 07/15/17 - Allergies Allergies/Adverse Reactions: Allergies Allergy/AdvReac Type Severity Reaction Status Date / Time atenolol Allergy Severe "Bradycardi Verified 04/24/17 15:50 a" doxazosin mesylate * Allergy Severe "Severe Verified 04/24/17 15:50 [From Cardura] eye pressure" ibuprofen [From Motrin] Allergy Severe "Kidney Verified 04/24/17 15:50 failure" metoprolol tartrate * Allergy Severe "Bradycardi Verified 04/24/17 15:50 [From Lopressor] a" nifedipine [From Procardia] Allergy Severe Edema Verified 04/24/17 15:50 heparin AdvReac Intermediate "Makes Verified 04/24/17 15:50 Skin Burn" hydrochlorothiazide AdvReac Intermediate "feels Verified 04/24/17 15:50 like an air-head" hydrocodone bitartrate * AdvReac Intermediate "Head in a Verified 04/24/17 15:50 [From Vicodin] wind tunnel" spironolactone AdvReac Intermediate "Cough" Verified 04/24/17 15:50 Exam - Vital Signs Reviewed Vital Signs: Yes Vital Signs: Vital Signs x48h Temp Pulse Resp BP Pulse Ox 09/08/17 08:46 36.8 C 66 18 129/74 98 09/08/17 08:20 36.4 C L 09/08/17 07:34 65 18 139/81 H 100 - Physical Exam Comments/Other: Elderly cachectic female with dystonicmotions of mouth, but able to talk clearly. No sign of trauma to upper extremities. Moves neck with mild pain. Right lower extremity with mild swelling and possibly no effusion. Tender at medial tibial plateau and painful there with very limited motion near extension. No varus deformity. No wound. Normally decreased distal NV function. Conclusion/Plan - Diagnosis Diagnosis: Closed Right tibial plateau fracture,medial,. Pain management issues. Mobility issues, must be non-weight bearing in knee immobilizer. Need for dialysis tomorrow - Plan Plan: Disposition as per ER MD. Will need to see me in 2-3 weeks in office. Weight of leg weight bearing only during that interval. Labs, EKG, Meds, Allergy - Medications Medications: Ambulatory Orders Medication Instructions Recorded Confirmed Aspirin [Aspir 81] 81 mg PO DAILY 04/05/14 07/15/17 Gabapentin 300 mg PO TID 04/05/14 07/15/17 Levothyroxine Sodium [Synthroid] 125 mcg PO DAILY 04/05/14 07/15/17 Lorazepam [Ativan] 1 mg PO Q8H PRN 04/05/14 07/15/17 Omeprazole 20 mg PO BID 04/05/14 07/15/17 Folic Acid 800 mcg PO DAILY 06/24/14 07/15/17 Mecobal/Levomefolat Ca/B6 Phos 1 tab PO BID 06/24/14 07/15/17 [Foltanx Tablet] Sevelamer Carbonate [Renvela] 1,600 mg PO TIDWM 06/24/14 07/15/17 Albuterol Sulfate [Proair 2 puffs INH Q6HR PRN 08/09/16 07/15/17 Respiclick] Cholecalciferol (Vitamin D3) 2,000 units PO DAILY 08/09/16 07/15/17 [Vitamin D3] Diphenhydramine HCl [Sleep Aid] 25 mg PO QPM PRN 08/09/16 07/15/17 Docusate Sodium 100 mg PO DAILY PRN 08/09/16 07/15/17 Mirtazapine 15 mg PO QPM 08/09/16 07/15/17 Ondansetron [Ondansetron Odt] 4 mg PO Q8H PRN 08/09/16 07/15/17 oxyCODONE [Roxicodone] 5 mg PO Q4H PRN 08/09/16 07/15/17 Acetaminophen 650 mg PO Q4H PRN 10/17/16 07/15/17 Ferrous Sulfate 325 mg PO TIDWM 10/17/16 07/15/17 Ipratropium/Albuterol [Duoneb] 3 ml INH Q6H PRN 10/17/16 07/15/17 Lidocaine Patch 5% [Lidoderm Patch] 1 patch TOP DAILY 10/17/16 07/15/17 Pravastatin [Pravachol] 10 mg PO QPM 10/17/16 07/15/17 Polyethylene Glycol 3350 [Miralax] 17 gm PO DAILY packet 10/18/16 07/15/17 - Allergy Allergy: Allergies Allergy/AdvReac Type Severity Reaction Status Date / Time atenolol Allergy Severe "Bradycardi Verified 04/24/17 15:50 a" doxazosin mesylate * Allergy Severe "Severe Verified 04/24/17 15:50 [From Cardura] eye pressure" ibuprofen [From Motrin] Allergy Severe "Kidney Verified 04/24/17 15:50 failure" metoprolol tartrate * Allergy Severe "Bradycardi Verified 04/24/17 15:50 [From Lopressor] a" nifedipine [From Procardia] Allergy Severe Edema Verified 04/24/17 15:50 heparin AdvReac Intermediate "Makes Verified 04/24/17 15:50 Skin Burn" hydrochlorothiazide AdvReac Intermediate "feels Verified 04/24/17 15:50 like an air-head" hydrocodone bitartrate * AdvReac Intermediate "Head in a Verified 04/24/17 15:50 [From Vicodin] wind tunnel" spironolactone AdvReac Intermediate "Cough" Verified 04/24/17 15:50 Aspirin [Aspir 81] 81 mg PO DAILY 04/05/14 Gabapentin 300 mg PO TID 04/05/14 Levothyroxine Sodium [Synthroid] 125 mcg PO DAILY 04/05/14 Lorazepam [Ativan] 1 mg PO Q8H PRN 04/05/14 Omeprazole 20 mg PO BID 04/05/14 Folic Acid 800 mcg PO DAILY 06/24/14 Mecobal/Levomefolat Ca/B6 Phos [Foltanx Tablet] 1 tab PO BID 06/24/14 Sevelamer Carbonate [Renvela] 1,600 mg PO TIDWM 06/24/14 Albuterol Sulfate [Proair Respiclick] 2 puffs INH Q6HR PRN 08/09/16 Cholecalciferol (Vitamin D3) [Vitamin D3] 2,000 units PO DAILY 08/09/16 Diphenhydramine HCl [Sleep Aid] 25 mg PO QPM PRN 08/09/16 Docusate Sodium 100 mg PO DAILY PRN 08/09/16 Mirtazapine 15 mg PO QPM 08/09/16 Ondansetron [Ondansetron Odt] 4 mg PO Q8H PRN 08/09/16 oxyCODONE [Roxicodone] 5 mg PO Q4H PRN 08/09/16 Acetaminophen 650 mg PO Q4H PRN 10/17/16 Ferrous Sulfate 325 mg PO TIDWM 10/17/16 Ipratropium/Albuterol [Duoneb] 3 ml INH Q6H PRN 10/17/16 Lidocaine Patch 5% [Lidoderm Patch] 1 patch TOP DAILY 10/17/16 Pravastatin [Pravachol] 10 mg PO QPM 10/17/16 Polyethylene Glycol 3350 [Miralax] 17 gm PO DAILY packet 10/18/16 - Other Other Results/Comments: Radiographs: Right knee with severly osteo porotic bones equal to density of atherosclerotic arteries. Medialtibial plateau wedge shaped impaction with perhaps 5-10 deg change in the joint. However femoral- tibial slight varus remains. Non intra-articular in medial compartment. Very congruent surfaces without prior arthritic change.
[2017-09-08] MEDS ORDERED: oxyCOD/ACETAMIN 5 MG/325 MG TABLET PO STA (11:53)
[2017-09-08] MEDS ORDERED: oxyCOD/ACETAMIN 5 MG/325 MG TABLET PO ONE (12:05)
[2017-09-08 13:54] VITALS: BP 108/56
== END 2017-09-08 14:00 | disposition home or self-care (01) ==
LOC: EDUNIT# → ED 07:31
DX: S82.141A Displaced bicondylar fracture of right tibia, initial encounter for closed fracture (principal); W18.2XXA Fall in (into) shower or empty bathtub, initial encounter; Y93.E1 Activity, personal bathing and showering; Y92.012 Bathroom of single-family (private) house as the place of occurrence of the external cause; I12.0 Hypertensive chronic kidney disease with stage 5 chronic kidney disease or end stage renal disease; N18.6 End stage renal disease; Z99.2 Dependence on renal dialysis; G47.30 Sleep apnea, unspecified; I50.22 Chronic systolic (congestive) heart failure; I08.2 Rheumatic disorders of both aortic and tricuspid valves; I25.10 Atherosclerotic heart disease of native coronary artery without angina pectoris; I48.2 Chronic atrial fibrillation; K21.9 Gastro-esophageal reflux disease without esophagitis; M19.90 Unspecified osteoarthritis, unspecified site; E78.00 Pure hypercholesterolemia, unspecified; J44.9 Chronic obstructive pulmonary disease, unspecified; E03.9 Hypothyroidism, unspecified; Z85.3 Personal history of malignant neoplasm of breast; Z85.828 Personal history of other malignant neoplasm of skin; Z79.82 Long term (current) use of aspirin; Z94.0 Kidney transplant status; Z99.3 Dependence on wheelchair
CPT/HCPCS: 29530; 70450; 72125; 73564; 93306; 96374; 96375; 96376; 99284; A9270; J1170

== ENCOUNTER 2017-09-08 15:33 | Outpatient (CLI) | payer MEDICARE, BC | END 2017-09-08 15:34 | disposition home or self-care (01) | LOC: DI 15:33 | PROVIDERS: ATTEND Internal Medicine Cardiovascular Disease | DX: I50.22 Chronic systolic (congestive) heart failure (principal); I08.2 Rheumatic disorders of both aortic and tricuspid valves; I25.10 Atherosclerotic heart disease of native coronary artery without angina pectoris; I48.2 Chronic atrial fibrillation | CPT/HCPCS: 93306 ==

== ENCOUNTER 2017-10-01 13:07 | Outpatient (CLI) | payer MEDICARE, BC ==
--- NOTE | 2017-10-01 16:13 | Mammography Report ---
EXAM: DIGITAL DIAGNOSTIC BILATERAL MAMMOGRAM: 10/01/2017 CLINICAL INDICATION: Followup left breast cancer, status post lumpectomy and radiation therapy. TECHNIQUE: Bilateral CC, MLO views, left true lateral view. COMPARISON: 12/11/2016, 04/29/2016, 09/18/2015, 01/25/2015, 06/28/2014, 2013, 03/10/2014, 11/21/2008. FINDINGS: The breasts demonstrate heterogeneously dense fibroglandular parenchyma bilaterally. There is diffuse bilateral skin thickening and interstitial prominence, suggestive of cardiac disease or other etiology for diffuse edema. No suspicious masses, clustered microcalcifications, or regions of architectural distortion are identified. Coarse, typically benign calcifications are present. IMPRESSION: BENIGN FINDINGS. RECOMMENDATIONS: Routine annual mammography unless otherwise clinically indicated. BIRADS CATEGORY 2-BENIGN FINDINGS. STANDARD QUALIFYING STATEMENTS: 1. This examination was reviewed with the aid of Computer-Aided Detection (CAD) . 2. A negative or benign imaging report should not delay biopsy if clinically suspicious findings are present. Consider surgical consultation if warranted. More than 5% of cancers are not identified by imaging. 3. Dense breasts may obscure an underlying neoplasm. TD: 10/01/2017 16:12 LEIF
== END 2017-10-01 13:08 | disposition home or self-care (01) ==
LOC: DI 13:07
PROVIDERS: ATTEND Internal Medicine Hematology & Oncology
DX: C50.412 Malignant neoplasm of upper-outer quadrant of left female breast (principal); Z98.890 Other specified postprocedural states; Z92.3 Personal history of irradiation
CPT/HCPCS: 77066

== ENCOUNTER 2018-04-13 07:32 | Outpatient (CLI) | payer MEDICARE, BC ==
--- NOTE | 2018-04-13 09:04 | Ultrasound Report ---
Procedure Date: 04/13/2018 Accession Number: [id number] / [id number] Procedure: US - Abdomen Complete CPT Code: FULL RESULT: EXAM: Abdomen Complete DATE: 04/13/2018 8:55 AM CLINICAL HISTORY: ESRD ON HEMODIALYSIS, POLYCISTIC KIDNEY COMPARISON: 08/29/2006 TECHNIQUE: Real-time scanning was performed with static images obtained. FINDINGS: Liver: Polycystic liver, measuring 21 cm. Main portal vein flow: Hepatopetal. No solid liver lesion identified. Gallbladder: Surgically absent. Biliary System: Common bile duct measures 12 mm. Mildly prominent for a postcholecystectomy patient. Pancreas: Visualized portion is unremarkable. Kidneys: Right: 18 cm longitudinally. Polycystic kidney. No hydronephrosis. Left: 14 cm longitudinally. Polycystic kidney. No hydronephrosis. Spleen: 19 cm. Splenomegaly. No focal mass. Aorta and Inferior Vena Cava: Unremarkable. In the right lower quadrant, there is a 9.9 cm right iliac fossa renal transplant, without evidence of hydronephrosis. Ascites is present. IMPRESSION: Polycystic liver and kidneys. Right lower quadrant renal transplant, without evidence of hydronephrosis. Splenomegaly and ascites, likely secondary to liver dysfunction. RADIA
== END 2018-04-13 07:33 | disposition home or self-care (01) ==
LOC: DI 07:32
PROVIDERS: ATTEND Internal Medicine Nephrology
DX: N18.6 End stage renal disease (principal); Q61.3 Polycystic kidney, unspecified; Z99.2 Dependence on renal dialysis; Q44.6 Cystic disease of liver; R16.1 Splenomegaly, not elsewhere classified; R18.8 Other ascites; Z94.0 Kidney transplant status
CPT/HCPCS: 76700

== ENCOUNTER 2018-05-10 15:45 | Outpatient (CLI) | payer MEDICARE, BC | END 2018-05-10 15:46 | disposition critical access hospital (66) | LOC: EMS 15:45 | PROVIDERS: ATTEND Surgery | DX: R51 Headache (principal); M54.2 Cervicalgia; M25.552 Pain in left hip; M25.512 Pain in left shoulder; W18.39XA Other fall on same level, initial encounter; Y92.481 Parking lot as the place of occurrence of the external cause | CPT/HCPCS: A0425; A0429 ==

== ENCOUNTER 2018-05-10 16:01 | Emergency (ER) | payer MEDICARE, BC ==
[2018-05-10] MEDS ORDERED: MORPHINE 10 MG/ML VIAL IM STA ×2 (16:18→18:07)
--- NOTE | 2018-05-10 16:23 | ED Physician Documentation ---
History of Present Illness - Stated complaint Stated Complaint: GLF - Chief complaint Chief Complaint: General - History obtained from History obtained from: Patient, EMS - History of Present Illness Timing: Today (72yo woman with ESRD, Dialyzed Friday, , Friday. She had a mechanical fall backwards hitting the left scapula in the back of her head. No open wounds. She also complains of hip pain. At baseline she is either in a wheelchair or uses a walker. No shortness of breath or chest pain. 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, Other HEENT: Chronic vision loss Psych: Anxiety Musculoskeletal: Osteoarthritis, Chronic back pain Derm: Other - Past Surgical History Past Surgical History: Yes General: Cholecystectomy, Bowel surgery Ortho: Knee replacement /OUTSIDE PLANT SUPERVISOR: 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 HEENT: Cataracts, Tonsil/Adenoidectomy Derm: Skin cancer surgery - Present Medications Home Medications: Ambulatory Orders Medication Instructions Recorded Confirmed Aspirin [Aspir 81] 81 mg PO DAILY 04/05/14 12/29/17 Gabapentin 300 mg PO TID 04/05/14 12/29/17 Levothyroxine Sodium [Synthroid] 125 mcg PO DAILY 04/05/14 12/29/17 Lorazepam [Ativan] 1 mg PO Q8H PRN 04/05/14 12/29/17 Omeprazole 20 mg PO BID 04/05/14 12/29/17 Folic Acid 800 mcg PO DAILY 06/24/14 12/29/17 Mecobal/Levomefolat Ca/B6 Phos 1 tab PO BID 06/24/14 12/29/17 [Foltanx Tablet] Sevelamer Carbonate [Renvela] 1,600 mg PO TIDWM 06/24/14 12/29/17 Albuterol Sulfate [Proair 2 puffs INH Q6HR PRN 08/09/16 12/29/17 Respiclick] Cholecalciferol (Vitamin D3) 2,000 units PO DAILY 08/09/16 12/29/17 [Vitamin D3] Diphenhydramine HCl [Sleep Aid] 25 mg PO QPM PRN 08/09/16 12/29/17 Docusate Sodium 100 mg PO DAILY PRN 08/09/16 12/29/17 Mirtazapine 15 mg PO QPM 08/09/16 12/29/17 Ondansetron [Ondansetron Odt] 4 mg PO Q8H PRN 08/09/16 12/29/17 oxyCODONE [Roxicodone] 5 mg PO Q4H PRN 08/09/16 12/29/17 Acetaminophen 650 mg PO Q4H PRN 10/17/16 12/29/17 Ferrous Sulfate 325 mg PO TIDWM 10/17/16 12/29/17 Ipratropium/Albuterol [Duoneb] 3 ml INH Q6H PRN 10/17/16 12/29/17 Lidocaine Patch 5% [Lidoderm Patch] 1 patch TOP DAILY 10/17/16 12/29/17 Pravastatin [Pravachol] 10 mg PO QPM 10/17/16 12/29/17 Polyethylene Glycol 3350 [Miralax] 17 gm PO DAILY packet 10/18/16 12/29/17 - Allergies Allergies/Adverse Reactions: Allergies Allergy/AdvReac Type Severity Reaction Status Date / Time atenolol Allergy Severe "Bradycardi Verified 04/24/17 15:50 a" doxazosin mesylate * Allergy Severe "Severe Verified 04/24/17 15:50 [From Cardura] eye pressure" ibuprofen [From Motrin] Allergy Severe "Kidney Verified 04/24/17 15:50 failure" metoprolol tartrate * Allergy Severe "Bradycardi Verified 04/24/17 15:50 [From Lopressor] a" nifedipine [From Procardia] Allergy Severe Edema Verified 04/24/17 15:50 heparin AdvReac Intermediate "Makes Verified 04/24/17 15:50 Skin Burn" hydrochlorothiazide AdvReac Intermediate "feels Verified 04/24/17 15:50 like an air-head" hydrocodone bitartrate * AdvReac Intermediate "Head in a Verified 04/24/17 15:50 [From Vicodin] wind tunnel" spironolactone AdvReac Intermediate "Cough" Verified 04/24/17 15:50 - Social History Does the pt smoke?: No Smoking Status: Never smoker Does the pt drink ETOH?: No Does the pt have substance abuse?: No - Immunizations Immunizations are current?: Yes - POLST Patient has POLST: No PD ED PE NORMAL - Vitals Vital signs reviewed: Yes - General General: Alert and oriented X 3, No acute distress - HEENT HEENT: PERRL, EOMI, Other (Rhythmic tongue and facial movements, could be tardive dyskinesia or parkinsonism) - Neck Neck: Other (Very mild upper C-spine tenderness, maintained in a collar pending imaging.) - Cardiac Cardiac: RRR, No murmur - Respiratory Respiratory: No respiratory distress, Clear bilaterally - Abdomen Abdomen: Normal bowel sounds, Soft, Non tender - Back Back: No CVA TTP, No spinal TTP - Derm Derm: Normal color, Warm and dry - Extremities Extremities: Other (Both hips have full range of motion and are nontender. She does have moderate bilateral pitting pedal edema below the mid ley and venous stasis changes. She has shunts in both arms. Good range of motion of both arms , mild tenderness over the upper left scapula. No other chest wall tenderness is appreciated.) - Neuro Neuro: Alert and oriented X 3, Normal speech Results - Vitals Vitals: Vital Signs - 24 hr 05/10/18 05/10/18 16:04 18:14 Temperature 36.9 C Heart Rate 84 76 Respiratory 20 16 Rate Blood Pressure 168/97 H 109/76 O2 Saturation 93 97 Oxygen O2 Source Nasal cannula - Rads (name of study) CT of the head, cervical spine, chest and x-rays of both hips Radiology: EMP read contemporaneously (All without acute disease.) PD MEDICAL DECISION MAKING - ED course ED course: 72-year-old dialysis dependent woman had a mechanical ground-level fall hitting the back of her head today. She has hip pain clinically there is no hip fracture, we can move him around fine and she is not tender. Her relevant images are negative and they are comfortable with discharge, - Sepsis Event Vital Signs: Vital Signs - 24 hr 05/10/18 05/10/18 16:04 18:14 Temperature 36.9 C Heart Rate 84 76 Respiratory 20 16 Rate Blood Pressure 168/97 H 109/76 O2 Saturation 93 97 Oxygen O2 Source Nasal cannula Departure - Departure Disposition: 01 Home, Self Care Clinical Impression: Head injury Qualifiers: Encounter type: initial encounter Qualified Code(s): S09.90XA - Unspecified injury of head, initial encounter Fall from slip, trip, or stumble Qualifiers: Encounter type: initial encounter Qualified Code(s): W01.0XXA - Fall on same level from slipping, tripping and stumbling without subsequent striking against object, initial encounter Chronic renal failure Qualifiers: Chronic kidney disease stage: stage 5 Qualified Code(s): N18.5 - Chronic kidney disease, stage 5 Strain of hip Qualifiers: Encounter type: initial encounter Laterality: right Qualified Code(s): S76.011A - Strain of muscle, fascia and tendon of right hip, initial encounter Back injury Qualifiers: Encounter type: initial encounter Qualified Code(s): S39.92XA - Unspecified injury of lower back, initial encounter Condition: Good Record reviewed to determine appropriate education?: Yes Instructions: ED Head Injury Closed, ED Contusion Back Comments: Call your doctor to arrange a follow-up appointment, make the next available appointment. In the interim, return anytime if worse or if new symptoms develop.
[2018-05-10 18:17] VITALS: BP 109/76
--- NOTE | 2018-05-10 18:23 | XRAY Report ---
Procedure Date: 05/10/2018 Accession Number: [id number] / [id number] Procedure: XR - Hips 2V BILAT CPT Code: FULL RESULT: EXAM: BILATERAL HIP RADIOGRAPHY EXAM DATE: 05/10/2018 05:37 PM. CLINICAL HISTORY: Fall, hip injury COMPARISON: AP pelvis 08/09/2016. TECHNIQUE: 3 views. FINDINGS: Bones: Somewhat limited due to severe osteopenia as well as some likely clothing or sheet overlying the pelvis. No gross displaced fracture. Right Hip: No dislocation. Superior joint space narrowing. Left Hip: No dislocation. Superior joint space narrowing. Soft Tissues: Atherosclerosis. Rim calcified cyst redemonstrated in the left pelvis. IMPRESSION: 1. Somewhat limited examination secondary to osteopenia as well as some artifact overlying the pelvis. No gross displaced fracture. RADIA
--- NOTE | 2018-05-10 18:45 | CT Report ---
Procedure Date: 05/10/2018 Accession Number: [id number] / [id number] Procedure: CT - Head W/O CPT Code: FULL RESULT: EXAM: CT HEAD EXAM DATE: 05/10/2018 06:16 PM. CLINICAL HISTORY: Fall. Head injury. COMPARISON: 09/08/2017 7:54 AM. TECHNIQUE: Multiaxial CT images were obtained from the foramen magnum to the vertex. Reformats: Coronal. IV contrast: None. In accordance with CT protocol optimization, one or more of the following dose reduction techniques were utilized for this exam: automated exposure control, adjustment of mA and/or KV based on patient size, or use of iterative reconstructive technique. FINDINGS: Parenchyma: No intraparenchymal hemorrhage. No evidence of mass, midline shift, or CT findings of infarction. Solis-white differentiation is distinct. Extraaxial Spaces: Normal for age. No subdural or epidural collections identified. Ventricles: Normal in size and position. Sinuses and Orbits: Mucosal thickening in the maxillary sinuses, left worse than right. No air-fluid levels. Opacified left mastoids noted. Orbits unremarkable. Bones: No evidence of fracture or calvarial defect. Other: Left upper parietal scalp hematoma noted. IMPRESSION: No acute intracranial abnormality or skull fracture. RADIA
--- NOTE | 2018-05-10 18:49 | CT Report ---
Procedure Date: 05/10/2018 Accession Number: [id number] / [id number] Procedure: CT - Cervical Spine W/O CPT Code: FULL RESULT: EXAM: CT CERVICAL SPINE WITHOUT CONTRAST DATE: 05/10/2018 06:16 PM. HISTORY: Fall. Head injury. COMPARISONS: CERVICAL SPINE W/O 09/08/2017 7:54 AM. TECHNIQUE: Thin-section axial images were acquired of the cervical spine without contrast. Post-processing: Coronal and sagittal reformats. Other: None. In accordance with CT protocol optimization, one or more of the following dose reduction techniques were utilized for this exam: automated exposure control, adjustment of mA and/or KV based on patient size, or use of iterative reconstructive technique. FINDINGS: Alignment: Stable dextroscoliosis. Stable anterolisthesis at C4-C5 and C5-C6. Bones: No fracture or bone lesion. Interspace Levels/Facets: C1-C2: Anterior degenerative changes. C2-C3: Unremarkable. C3-C4: Unremarkable. C4-C5: Moderate disk space narrowing.. C5-C6: Advanced disk space narrowing.. C6-C7: Advanced disk space narrowing with endplate irregularity. C7-T1: Unremarkable. Musculature: Normal. No fatty atrophy. Other: The paravertebral and prevertebral soft tissues are unremarkable. The lung apices are clear. IMPRESSION: Chronic C-spine abnormalities with stable anterolisthesis at C4-C5 and C5-C6. No acute findings. RADIA
--- NOTE | 2018-05-10 18:53 | CT Report ---
Procedure Date: 05/10/2018 Accession Number: [id number] / [id number] Procedure: CT - Chest W/O CPT Code: FULL RESULT: EXAM: CT CHEST EXAM DATE: 05/10/2018 06:16 PM. CLINICAL HISTORY: Fall. Left sided injury. COMPARISONS: ABDOMEN/PELVIS W/WO 10/10/2015. TECHNIQUE: Routine helical CT imaging was performed through the chest. IV contrast: None. Reconstructions: Coronal and sagittal. In accordance with CT protocol optimization, one or more of the following dose reduction techniques were utilized for this exam: automated exposure control, adjustment of mA and/or KV based on patient size, or use of iterative reconstructive technique. FINDINGS: Lungs/Pleura: No nodules, bronchial thickening, consolidation, or edema. Pulmonary vasculature is normal. No pericardial or pleural effusion. No pneumothorax. Mediastinum: Aortic and coronary artery calcification noted. No adenopathy or masses. The heart and great vessels are normal. Moderate hiatal hernia. Bones: Old right rib and upper sternal fracture deformities noted. No acute fractures identified. Visualized Abdomen: Multicystic liver disease and upper extent of polycystic left kidney disease noted. Moderate ascites.. Other: None. IMPRESSION: 1. No acute fractures identified. 2. Moderate hiatal hernia noted. 3. Multicystic liver disease and upper edge of polycystic left kidney disease noted. RADIA
== END 2018-05-10 19:22 | disposition home or self-care (01) ==
LOC: EDUNIT# → ED 16:01
DX: S09.90XA Unspecified injury of head, initial encounter (principal); S76.011A Strain of muscle, fascia and tendon of right hip, initial encounter; S39.92XA Unspecified injury of lower back, initial encounter; W01.0XXA Fall on same level from slipping, tripping and stumbling without subsequent striking against object, initial encounter; I12.0 Hypertensive chronic kidney disease with stage 5 chronic kidney disease or end stage renal disease; N18.6 End stage renal disease; Z99.2 Dependence on renal dialysis; I48.91 Unspecified atrial fibrillation; Z79.82 Long term (current) use of aspirin
CPT/HCPCS: 70450; 71250; 72125; 73521; 96372; 99283; 99284

== ENCOUNTER 2018-06-04 09:32 | Outpatient (CLI) | payer MEDICARE, BC | END 2018-06-04 09:33 | disposition short-term general hospital (02) | LOC: EMS 09:32 | PROVIDERS: ATTEND Surgery | DX: R53.83 Other fatigue (principal); R53.1 Weakness; R03.1 Nonspecific low blood-pressure reading; Z99.2 Dependence on renal dialysis | CPT/HCPCS: A0170; A0425; A0428 ==

== ENCOUNTER 2018-06-21 17:17 | Outpatient (CLI) | payer MEDICARE, BC | END 2018-06-21 17:18 | disposition critical access hospital (66) | LOC: EMS 17:17 | PROVIDERS: ATTEND Surgery | DX: R50.9 Fever, unspecified (principal); R14.0 Abdominal distension (gaseous) | CPT/HCPCS: A0425; A0429 ==

== ENCOUNTER 2018-06-21 17:23 | Emergency (ER) | payer MEDICARE, BC ==
--- NOTE | 2018-06-21 18:10 | ED Physician Documentation ---
PD HPI URI - Stated complaint Stated Complaint: ELEVATED TEMP - Chief complaint Chief Complaint: General - History obtained from History obtained from: Patient, Family, EMS, Caregiver - History of Present Illness Timing - onset: Today (sent from [facility] with report of temp of 100.2. Having dyspnea increased over baseline. Had dialysis as usual yesterday. Had blood transfusion 2 days ago in [facility]. Has extra dialysis session planned for tomorrow, as her BP did not tolerate a full run yesterday.) Timing details: Gradual onset (she has had increased dyspnea over several days to a week or more. No cough. Has had increased weight gain and abd girth the past couple weeks. Concern for ascites and is getting referral for evaluation/ possible paracentesis. She is dialysis patient. Recently recovered/ finished treatment for C.Diff. and does not currently have diarrhea.) Associated symptoms: Fever (reported low grade today.), Dyspnea. No: Nasal congestion, Sore throat, Dry cough, NVD Contributing factors: No: Sick contact Recently seen: Clinic (had dialysis yesterday and [facility] for transfusion 2 days ago.) Review of Systems Constitutional: denies: Chills Nose: denies: Rhinorrhea / runny nose, Congestion Throat: denies: Sore throat Cardiac: denies: Chest pain / pressure Respiratory: reports: Dyspnea. denies: Cough GI: denies: Vomiting, Diarrhea (not the past week.) : denies: Frequency (she produces minimal urine (dialysis patient)) Skin: denies: Abrasion (s), Laceration (s) Neurologic: reports: Generalized weakness. 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: Breast cancer : Dialysis, Other HEENT: Chronic vision loss Psych: Anxiety Musculoskeletal: Osteoarthritis, Chronic back pain Derm: Other - Past Surgical History Past Surgical History: Yes General: Cholecystectomy, Bowel surgery Ortho: Knee replacement /BRUSH WASHER: 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 HEENT: Cataracts, Tonsil/Adenoidectomy Derm: Skin cancer surgery - Present Medications Home Medications: Ambulatory Orders Medication Instructions Recorded Confirmed Aspirin [Aspir 81] 81 mg PO DAILY 04/05/14 06/19/18 Gabapentin 300 mg PO TID 04/05/14 06/19/18 Levothyroxine Sodium [Synthroid] 125 mcg PO DAILY 04/05/14 06/19/18 Lorazepam [Ativan] 1 mg PO Q8H PRN 04/05/14 06/19/18 Omeprazole 20 mg PO BID 04/05/14 06/19/18 Folic Acid 800 mcg PO DAILY 06/24/14 06/19/18 Mecobal/Levomefolat Ca/B6 Phos 1 tab PO BID 06/24/14 06/19/18 [Foltanx Tablet] Sevelamer Carbonate [Renvela] 1,600 mg PO TIDWM 06/24/14 06/19/18 Albuterol Sulfate [Proair 2 puffs INH Q6HR PRN 08/09/16 06/19/18 Respiclick] Cholecalciferol (Vitamin D3) 2,000 units PO DAILY 08/09/16 06/19/18 [Vitamin D3] Diphenhydramine HCl [Sleep Aid] 25 mg PO QPM PRN 08/09/16 06/19/18 Docusate Sodium 100 mg PO DAILY PRN 08/09/16 06/19/18 Mirtazapine 15 mg PO QPM 08/09/16 06/19/18 Ondansetron [Ondansetron Odt] 4 mg PO Q8H PRN 08/09/16 06/19/18 oxyCODONE [Roxicodone] 5 mg PO Q4H PRN 08/09/16 06/19/18 Acetaminophen 650 mg PO Q4H PRN 10/17/16 06/19/18 Ferrous Sulfate 325 mg PO TIDWM 10/17/16 06/19/18 Ipratropium/Albuterol [Duoneb] 3 ml INH Q6H PRN 10/17/16 06/19/18 Lidocaine Patch 5% [Lidoderm Patch] 1 patch TOP DAILY 10/17/16 06/19/18 Pravastatin [Pravachol] 10 mg PO QPM 10/17/16 06/19/18 Polyethylene Glycol 3350 [Miralax] 17 gm PO DAILY packet 10/18/16 06/19/18 - Allergies Allergies/Adverse Reactions: Allergies Allergy/AdvReac Type Severity Reaction Status Date / Time atenolol Allergy Severe "Bradycardi Verified 04/24/17 15:50 a" doxazosin mesylate * Allergy Severe "Severe Verified 04/24/17 15:50 [From Cardura] eye pressure" ibuprofen [From Motrin] Allergy Severe "Kidney Verified 04/24/17 15:50 failure" metoprolol tartrate * Allergy Severe "Bradycardi Verified 04/24/17 15:50 [From Lopressor] a" nifedipine [From Procardia] Allergy Severe Edema Verified 04/24/17 15:50 heparin AdvReac Intermediate "Makes Verified 04/24/17 15:50 Skin Burn" hydrochlorothiazide AdvReac Intermediate "feels Verified 04/24/17 15:50 like an air-head" hydrocodone bitartrate * AdvReac Intermediate "Head in a Verified 04/24/17 15:50 [From Vicodin] wind tunnel" spironolactone AdvReac Intermediate "Cough" Verified 04/24/17 15:50 - Social History Does the pt smoke?: No Smoking Status: Never smoker Does the pt drink ETOH?: No Does the pt have substance abuse?: No - Immunizations Immunizations are current?: Yes - POLST Patient has POLST: No PD ED PE NORMAL - Vitals Vital signs reviewed: Yes - General General: Alert and oriented X 3, Well developed/nourished - HEENT HEENT: Pharynx benign - Neck Neck: Supple, no meningeal sign, No adenopathy - Cardiac Cardiac: RRR, No murmur - Respiratory Respiratory: No: Clear bilaterally (some diffuse wheezes; fine crackles at bases. ) - Abdomen Abdomen: Normal bowel sounds, Soft, Other (enlarged liver to percussion. General tenderness and distension c/w ascites. Umbilical hernia that is compressible, minimally tender. ) - Female Female : Deferred - Rectal Rectal: Deferred - Back Back: No CVA TTP - Derm Derm: Normal color, Warm and dry - Extremities Extremities: No calf tenderness / cord, Other (2+ edema in both legs. No obvious skin infections. There is some blistering on calf left leg, with clear fluid base. ) - Neuro Neuro: Alert and oriented X 3, No motor deficit, Normal speech Results - Vitals Vitals: Vital Signs - 24 hr 0906/21/18 06/21/18 17:26 17:30 19:12 Temperature 37.0 C Heart Rate 64 66 61 Respiratory 18 16 13 Rate Blood Pressure 118/62 107/63 97/55 L O2 Saturation 94 98 95 06/21/18 06/21/18 06/21/18 20:00 20:44 21:08 Temperature Heart Rate 89 78 69 Respiratory 13 12 13 Rate Blood Pressure 108/59 L 108/59 L 108/67 O2 Saturation 89 L 94 95 06/21/18 06/21/18 22:01 22:53 Temperature 37.1 C 36.8 C Heart Rate 63 64 Respiratory 18 14 Rate Blood Pressure 108/67 104/65 O2 Saturation 98 96 Oxygen O2 Source Nasal cannula Oxygen Flow Rate 2 - Labs Labs: Microbiology 06/21/18 21:49 Body Fluid Culture - Preliminary Peritoneal Fluid Laboratory Tests 06/21/18 06/21/18 06/21/18 18:00 18:00 18:00 WBC 5.4 RBC 3.69 L Hgb 8.8 L Hct 28.3 L MCV 76.6 L MCH 23.7 L MCHC 30.9 L RDW 24.0 H Plt Count 95 L MPV 7.3 L Neut # (Auto) 4.5 Lymph # (Auto) 0.4 L [place] # (Auto) 0.5 Eos # (Auto) 0.0 Baso # (Auto) 0.0 Absolute Nucleated RBC 0.01 Nucleated RBC % 0.2 Manual Slide Review Indicated WBC Morphology NORMAL APPEARANCE Platelet Estimate DECREASED (<130,000) Platelet Morphology 1+ LARGE PLATELETS RBC Morph Micro Appear 1+ TEARDROP CELLS PT 18.8 H INR 1.7 H APTT TNP Sodium 130 L Potassium 4.3 Chloride 92 L Carbon Dioxide 27 Anion Gap 11.0 BUN 48 H Creatinine 2.9 H Estimated GFR (MDRD) 16 L Glucose 89 Lactic Acid Calcium 8.1 L Phosphorus 4.1 Magnesium 1.4 L Total Bilirubin 0.9 AST 19 ALT 10 Alkaline Phosphatase 74 B-Natriuretic Peptide Total Protein 6.5 L Albumin 2.3 L Globulin 4.2 Albumin/Globulin Ratio 0.5 L Lipase 42 Fluid Source Fluid Color Fluid Clarity Fluid WBC Fluid RBC Fluid Neutrophils % Fluid Lymphocytes % Fluid Monocytes % Fld Mesothelial Cell % 06/21/18 06/21/18 06/21/18 18:00 18:00 21:49 WBC RBC Hgb Hct MCV MCH MCHC RDW Plt Count MPV Neut # (Auto) Lymph # (Auto) [place] # (Auto) Eos # (Auto) Baso # (Auto) Absolute Nucleated RBC Nucleated RBC % Manual Slide Review WBC Morphology Platelet Estimate Platelet Morphology RBC Morph Micro Appear PT INR APTT Sodium Potassium Chloride Carbon Dioxide Anion Gap BUN Creatinine Estimated GFR (MDRD) Glucose Lactic Acid 1.0 Calcium Phosphorus Magnesium Total Bilirubin AST ALT Alkaline Phosphatase B-Natriuretic Peptide 1538 H Total Protein Albumin Globulin Albumin/Globulin Ratio Lipase Fluid Source PERITONEAL Fluid Color YELLOW Fluid Clarity CLEAR Fluid WBC 1527 Fluid RBC 896 Fluid Neutrophils % 67 Fluid Lymphocytes % 8 Fluid Monocytes % 25 Fld Mesothelial Cell % Not Reportable - Rads (name of study) chest Radiology: Prelim report reviewed (some interstitial changes c/w CHF.) abd CT Radiology: Prelim report reviewed (no acute change. Multicystic liver similar to prior. large amount ascites. ) Procedures - Paracentesis Preparation: Consent obtained, Ultrasound guidance, Sterile prep and drape, Local anesthesia Location: RLQ Technique: Z-tract, Catheter over needle Fluid: Clear, Sent for cell count, Sent for gram stain, Sent for culture, Volume - enter cc (1600 ml obtained - (was going to get more but the drainage slowed and stopped despite repositioning and slight withdrawal, so stopped the drainage).) Aftercare: No complications, Patient tolerated well, Dressing applied, Other ( she says she is breathing easier after the procedure) PD MEDICAL DECISION MAKING - ED course Complexity details: reviewed results (WBC and lactate normal. No obvious infection initially. Paracentesis done diagnostically and therapeutically. She is breathing easier after that. Does not appear infected. ), considered differential, d/w patient, d/w family (states patient is still full code. She and they would like paracentesis if that is cause of dyspnea. Will test for obvious infection source. She is afebrile here. ), d/w reporting consultant ED course: The peritoneal fluid resulted with no organisms seen on Gram stain but did have 1500 white cells with 67% neutrophils worrisome for peritonitis. I talked with the patient and discussed potential transfer for treatment of this along with her need for dialysis. The patient declined transfer and states she would wants to go back to [facility]. We came up with a treatment plan that is still reasonable to give a gram of vancomycin here and she can get a dose again in dialysis tomorrow and follow up with her community health navigator at that time. Cultures should be available in a couple of days and this would give her treatment coverage. I told her it is not the most ideal but is still a treatment course. She can return if worsening symptoms. - Sepsis Event Vital Signs: Vital Signs - 24 hr 06/21/18 06/21/18 06/21/18 17:26 17:30 19:12 Temperature 37.0 C Heart Rate 64 66 61 Respiratory 18 16 13 Rate Blood Pressure 118/62 107/63 97/55 L O2 Saturation 94 98 95 06/21/18 06/21/18 06/21/18 20:00 20:44 21:08 Temperature Heart Rate 89 78 69 Respiratory 13 12 13 Rate Blood Pressure 108/59 L 108/59 L 108/67 O2 Saturation 89 L 94 95 06/21/18 06/21/18 22:01 22:53 Temperature 37.1 C 36.8 C Heart Rate 63 64 Respiratory 18 14 Rate Blood Pressure 108/67 104/65 O2 Saturation 98 96 Oxygen O2 Source Nasal cannula Oxygen Flow Rate 2 Departure - Departure Disposition: 01 Home, Self Care Clinical Impression: Generalized (acute) peritonitis Fever Qualifiers: Fever type: unspecified Qualified Code(s): R50.9 - Fever, unspecified Dyspnea Qualifiers: Dyspnea type: shortness of breath Qualified Code(s): R06.02 - Shortness of breath; R06.00 - Dyspnea, unspecified; R06.01 - Orthopnea Ascites Qualifiers: Ascites type: other type Qualified Code(s): R18.8 - Other ascites Condition: Stable Record reviewed to determine appropriate education?: Yes Follow-Up: Jorge Jones DO [Primary Care Provider] - Christian Pantoja MD [Physician No Access] - Comments: You do have elevated amount of white cells in the peritoneal fluid which is concerning for early peritonitis. I understand that you do not want to be hospitalized and so we will treated with IV antibiotics now and have your community health navigator give some antibiotics tomorrow as well during dialysis. The cultures should result in a couple of days to see if there is a true infection. Your other labs appear normal here to today. Continue your usual medications otherwise and have dialysis tomorrow as scheduled. Return sooner if worse.
[2018-06-21] MEDS ORDERED: MORPHINE 10 MG/ML VIAL IVP STA ×2 (18:51→20:38)
[2018-06-21] MEDS ORDERED: ONDANSETRON 4 MG/2 ML VIAL IVP STA (18:54)
[2018-06-21 19:13] LABS: BASOPHILS % (AUTO) 0.7 %; EOSINOPHILS % (AUTO) 0.5 %; HGB - HEMOGLOBIN 8.8 g/dL (12.0-16.0); LYMPHOCYTES # (AUTO) 0.4 10^3/uL (1.5-3.5); LYMPHOCYTES % (AUTO) 6.7 %; MEAN CORPUSCULAR HEMOGLOBIN 23.7 pg (27.0-31.0); MEAN CORPUSCULAR HGB CONC 30.9 g/dL (32.0-36.0); MEAN CORPUSCULAR VOLUME 76.6 fL (81.0-99.0); MEAN PLATELET VOLUME 7.3 fL (7.9-10.8); MONOCYTES # (AUTO) 0.5 10^3/uL (0.0-1.0); MONOCYTES % (AUTO) 9.4 %; NEUTROPHILS # (AUTO) 4.5 10^3/uL (1.5-6.6); NEUTROPHILS % (AUTO) 82.7 %; PLT - PLATELET COUNT 95 10^3/uL (130-450); RED BLOOD COUNT 3.69 10^6/uL (4.20-5.40); WHITE BLOOD COUNT 5.4 x10^3/uL (4.8-10.8)
[2018-06-21 19:24] LABS: ALBUMIN 2.3 g/dL (3.2-5.5); ALBUMIN/GLOBULIN RATIO 0.5 (1.0-2.2); BILIRUBIN,TOTAL 0.9 mg/dL (0.2-1.0); CALCIUM 8.1 mg/dL (8.5-10.3); CREATININE 2.9 mg/dL (0.4-1.0); MAGNESIUM 1.4 mg/dL (1.7-2.8); PHOSPHORUS 4.1 mg/dL (2.5-4.6); TOTAL PROTEIN 6.5 g/dL (6.7-8.2)
--- NOTE | 2018-06-21 19:49 | CT Report ---
Reason: abd bloating and pain Procedure Date: 06/21/2018 Accession Number: [id number] / [id number] Procedure: CT - Abdomen/Pelvis W/O CPT Code: FULL RESULT: EXAM: CT ABDOMEN AND PELVIS EXAM DATE: 06/21/2018 07:28 PM. CLINICAL HISTORY: Abd bloating and pain. COMPARISONS: ABDOMEN/PELVIS W/WO 10/10/2015. TECHNIQUE: Routine helical CT imaging was performed through the abdomen and pelvis. IV contrast: No. Enteric contrast: Know. Reconstructions: Coronal and sagittal. In accordance with CT protocol optimization, one or more of the following dose reduction techniques were utilized for this exam: automated exposure control, adjustment of mA and/or KV based on patient size, or use of iterative reconstructive technique. FINDINGS: Lung Bases: There is a small right pleural effusion. Liver: There are innumerable cysts scattered throughout the liver. Further characterization limited without IV contrast. Gallbladder/Bile Ducts: The gallbladder has been removed. Stable dilatation of the common bile duct to 14 mm. Spleen: Normal. Pancreas: Normal. Adrenal Glands: Normal. Kidneys: Innumerable cysts replacing both kidneys many of which are calcified. No hydronephrosis. A right lower quadrant renal transplant is noted. Peritoneal Cavity/Bowel: There is a large volume ascites. No pneumoperitoneum. The appendix is not well visualized. There is a small volume of dependent fluid or debris at the pelvic peritoneal reflection. Pelvic Organs: Absent uterus. No pelvic mass. Vasculature: There is extensive atherosclerotic disease. No aneurysms. Bones: No significant abnormality. Other: There is a fat-containing right periumbilical hernia. IMPRESSION: 1. Polycystic liver and kidney disease. 2. Large volume ascites. 3. Fat-containing right periumbilical hernia. 4. No bowel obstruction. 5. Small right pleural effusion. RADIA
[2018-06-21 19:56] LABS: PLATELET ESTIMATE, MANUAL DECREASED (<130,000) (NORMAL); PLATELET MORPHOLOGY 1+ LARGE PLATELETS (NORMAL)
[2018-06-21 20:05] LABS: PT - PROTHROMBIN TIME 18.8 secs (9.9-12.6)
[2018-06-21 20:06] LABS: INR 1.7 (0.8-1.2)
--- NOTE | 2018-06-21 20:17 | XRAY Report ---
Reason: chest pain left sided Procedure Date: 06/21/2018 Accession Number: [id number] / [id number] Procedure: XR - Chest 2 View X-Ray CPT Code: 85195 FULL RESULT: EXAM: CHEST RADIOGRAPHY EXAM DATE: 06/21/2018 07:32 PM. CLINICAL HISTORY: Chest pain left sided. COMPARISON: CHEST 2 VIEW PA/LAT 02/16/2017. TECHNIQUE: 2 views. FINDINGS: Lungs/Pleura: There is pulmonary vascular congestion. No lobar consolidation or edema. A right subclavian vein stent graft is noted. Trace posterior sulcus effusions. Mediastinum: Heart and mediastinal contours are unremarkable. Other: None. IMPRESSION: 1. Pulmonary vascular congestion with trace pleural effusion suggesting mild fluid overload. No lobar consolidation. RADIA
[2018-06-21] MEDS ORDERED: LIDOCAINE 1%-EPI 1:100000 30 ML MDV ONE (21:15)
[2018-06-21 22:31] LABS: CC,BF RBC 896 /mm^3
[2018-06-21 22:37] LABS: BF SOURCE PERITONEAL
[2018-06-21 22:38] LABS: BF COLOR YELLOW
[2018-06-21 23:20] LABS: LYMPHOCYTES %,BODY FLUID 8; MONOCYTES %,BODY FLUID 25 %
[2018-06-21] MEDS ORDERED: VANCOMYCIN INJ 1 GM in SODIUM CHLORIDE 0.9% 500 ML IV STA (23:47)
[2018-06-21] MEDS ORDERED: VANCOMYCIN 1 GM VIAL ONE (23:56)
[2018-06-21] MEDS ORDERED: VANCOMYCIN INJ 1 GM in SODIUM CHLORIDE 0.9% 250 ML IV STA (23:56)
[2018-06-22 01:12] VITALS: BP 105/67
== END 2018-06-22 01:10 | disposition home or self-care (01) ==
LOC: EDUNIT# → ED 17:23
DX: K65.9 Peritonitis, unspecified (principal); R50.9 Fever, unspecified; R06.02 Shortness of breath; R06.01 Orthopnea; I10 Essential (primary) hypertension; E78.00 Pure hypercholesterolemia, unspecified; E03.9 Hypothyroidism, unspecified; Z96.659 Presence of unspecified artificial knee joint; Z79.82 Long term (current) use of aspirin
CPT/HCPCS: 36415; 49082; 71046; 74176; 80053; 83605; 83690; 83735; 83880; 84100; 85025; 85610; 87040; 87070; 87205; 89051; 96365; 96375; 96376; 99284; 99285; J3370; 85730; 87077; 87181

== ENCOUNTER 2018-06-22 14:24 | Outpatient (CLI) | payer MEDICARE, BC | END 2018-06-22 14:25 | disposition short-term general hospital (02) | LOC: EMS 14:24 | PROVIDERS: ATTEND Surgery | DX: R06.02 Shortness of breath (principal) | CPT/HCPCS: A0425; A0429 ==